=== PATIENT | female | born 1990 | race Hispanic/Latino ===

== ENCOUNTER 2017-04-02 00:49 | Emergency (ER) | payer SELFPAY ==
[2017-04-02 01:07] VITALS: BP 143/85; PULSE 75; RESP 16; TEMP 98; O2SAT 98
--- NOTE | 2017-04-02 01:30 | ED PDOC ---
Lower Extremity Pain/Injury Time Seen by Provider: 04/02/17 01:09 Chief Complaint (Nursing): Lower Extremity Problem/Injury History Per: Patient Additional Complaint(s): Pt. states earlier today she was at a concert when she accidentally stepped on a large piece of broken glass which became embedded on her L foot. Pt. states she was initially able to remove a few pieces of glass but feels as if there is more in there. She reports feeling a "crunch" when she attempts to walk. Denies numbness, tingling. Past Medical History Reviewed: Historical Data, Nursing Documentation, Vital Signs Vital Signs: Last Vital Signs Temp 98 F 04/02/17 01:05 Pulse 75 04/02/17 01:05 Resp 16 04/02/17 01:05 BP 143/85 04/02/17 01:05 Pulse Ox 98 04/02/17 01:05 - Family History Family History: States: No Known Family Hx - Home Medications Home Medications: Ambulatory Orders Medication Instructions Recorded Cephalexin [cephalexin] 500 mg PO Q6 #28 cap 04/02/17 - Allergies Allergies/Adverse Reactions: Allergies Allergy/AdvReac Type Severity Reaction Status Date / Time No Known Allergies Allergy Verified 04/02/17 01:04 Review of Systems ROS Statement: Except As Marked, All Systems Reviewed And Found Negative Musculoskeletal: Positive for: Foot Pain Physical Exam - Physical Exam Appears: Positive for: Well, Non-toxic, No Acute Distress Skin: Positive for: Normal Color, Warm. Negative for: Rash Extremity: Positive for: Other (L plantar surface of foot with superficial puncture wound with no visible FB) Neurologic/Psych: Positive for: Alert, Oriented - ECG O2 Sat by Pulse Oximetry: 98 - Radiology X-Ray: Interpreted by Me (Foot x-ray) X-Ray Interpretation: Other (small FB noted; no bony abnormality) - Progress ED Course And Treament: Foot x-ray ordered. Patient evaluated by Dr. Newsome, podiatry resident, who evaluated pt. in ED and attempted to remove FB without success. Dr. Newsome discussed case with Dr. Recinos who requests that pt. be prescribed Keflex and to f/u in either his office or the podiatry clinic. Disposition - Clinical Impression Clinical Impression: Foreign body in foot - Patient ED Disposition Is Patient to be Admitted: No - Disposition Referrals: Eliezer,Lloyd B, DPM [Staff Provider] - Podiatry Clinic [Outside] Disposition: Routine/Home Disposition Time: 03:18 Condition: STABLE Additional Instructions: FOLLOW UP WITH EITHER DR. YUEN OR PODIATRY CLINIC FOR FURTHER EVALUATION. Prescriptions: Cephalexin [cephalexin] 500 mg PO Q6 #28 cap Instructions: Soft Tissue Foreign Body (ED) Forms: [facility] ED School/Work Excuse Print Language: THAI
--- NOTE | 2017-04-02 02:12 | CP.PCM.CON ---
History of Present Illness - History of Present Illness History of Present Illness: This is a 26 yo female w. unremarkable pmhx presents to ED today with left foot pain. Says she was at a concert earlier last night and stepped on a piece of glass from a broken bottle. Pt says that she was wearing open-toed sandals at the time. Says she and her friend cleansed foot with alcohol and were able to remove several pieces of glass, however continued to have pain, bleeding a a "crunching" sensation in her foot on ambulation which prompted visit to ED today. Denies numbness or tingling to the foot, denies any other pedal complaints Review of Systems - Review of Systems Review of Systems: as per [facility] Meds Home Medications: Home Medication List Medication Instructions Recorded Confirmed Type Cephalexin [cephalexin] 500 mg PO Q6 #28 cap 04/02/17 Rx Allergies/Adverse Reactions: Allergies Allergy/AdvReac Type Severity Reaction Status Date / Time No Known Allergies Allergy Verified 04/02/17 01:04 Physical Exam - Constitutional Appears: Well, Non-toxic, No Acute Distress - Extremities Exam Additional comments: Left foot focused: VASC- pedal pulses palpable, skin temp runs warm to cool, cap refill < 3 sec to all digits, no edema DERM- superficial laceration measuring 0.3 cm in length noted to plantar aspect between 1st and 2nd metatarsal heads, no active bleeding, dried sanguinous material noted, no visible foreign body on inspection NEURO- pedal sensation grossly intact ORTHO- tenderness on palp of wound - Neurological Exam Neurological exam: Alert, CN II-XII Intact, Oriented x3 - Psychiatric Exam Psychiatric exam: Normal Affect, Normal Mood Results - Vital Signs Recent Vital Signs: Last Vital Signs Temp 98 F 04/02/17 01:05 Pulse 75 04/02/17 01:05 Resp 16 04/02/17 01:05 BP 143/85 04/02/17 01:05 Pulse Ox 98 04/02/17 01:30 Assessment & Plan - Assessment and Plan (Free Text) Assessment: 26 yo female pt with pain to left foot 2/2 foreign body (glass) Plan: Pt S&E at bedside in ED Plan discussed with attending Dr. Recinos in detail Chart reviewed: Left foot x-ray: no fx or dislocation, small radiodense object noted to plantar- medial aspect of distal foot 1% lidocaine plain injection given (7cc) Once adequate anesthesia achieved, foot prepped with betadine Small 0.5 cm incision made to original wound plantar foot, sterile hemostat utilized to explore subcutaneous tissue without successful retrieval of glass Wound flushed copiously with sterile saline, #4-0 nylon suture used to reapproximate skin edges in simple technique Foot cleansed with saline, bacitracin applied, DSD PO Keflex, surgical shoe, keep dressing c/d/i Advised pt to monitor for any signs infection Advised to f/u w/ Dr. Martins in office or [facility] podiatry clinic this week.
[2017-04-02] MEDS ORDERED: Lidocaine 1% Inj (20ml) IJ ONE (02:20)
--- NOTE | 2017-04-02 11:41 | RAD ---
PROCEDURE: Left Foot Radiographs. HISTORY: possible FB COMPARISON: None. FINDINGS: BONES: No evidence of acute displaced fracture nor dislocation. The osseous structures appear intact. There are no cortical destructive changes. JOINTS: Joint spaces preserved. SOFT TISSUES: Soft tissues appear grossly unremarkable. There are no obvious radiopaque foreign bodies. OTHER FINDINGS: None. IMPRESSION: No acute displaced fracture nor dislocation. No definitive radiopaque foreign bodies are identified.
== END 2017-04-02 03:28 | disposition home or self-care (01) ==
LOC: H.ER 00:49
DX: W22.8XXA Striking against or struck by other objects, initial encounter (principal); Y93.9 Activity, unspecified; W45.8XXA Other foreign body or object entering through skin, initial encounter